=== PATIENT | male | born 1990 | race Caucasian/White ===

== ENCOUNTER 2024-01-20 12:19 | Outpatient (CLI) | payer BC ==
[2024-01-20 13:50] LABS: #Basophils 0.05 10x3/uL (0.0-0.2); %Basophils 0.4 % (0.0-1.0); %Eosinophils 0.7 % (0.0-10.0); %Lymphocytes 24.2 % (21.0-51.0); %Monocytes 6.5 % (0.0-10.0); %Neutrophils 67.8 % (42.0-75.0); Hematocrit 47.2 % (42.0-52.0); Hemoglobin 15.1 g/dL (14.0-18.0); Mean Corpuscular Hemoglobin 28.2 pg (27.0-31.0); Mean Corpuscular Volume 88.1 fL (78.0-98.0); Mean Platelet Volume 9.9 fL (7.4-10.4); Platelet Count 287 10x3/uL (130-400); RBC Distribution Width 14.2 % (11.5-14.5); Red Blood Cell (RBC) Count 5.36 mill/uL (4.70-6.10)
[2024-01-20 13:59] LABS: Anion Gap 12 mmol/L (10-20); BUN (Urea Nitrogen) 10 mg/dL (8.9-20.6); Calc. Creatinine Clearance 0 mL/min (70-130); Calcium 9.8 mg/dL (7.8-10.44); Carbon Dioxide 30 mmol/L (22-29); Chloride 100 mmol/L (98-107); Estimated GFR 98; Glucose 92 mg/dL (70-105); Potassium 3.8 mmol/L (3.5-5.1); Sodium 138 mmol/L (136-145)
== END 2024-01-20 12:20 | disposition home or self-care (01) ==
LOC: LABBT 12:19
PROVIDERS: ATTEND Orthopaedic Surgery
DX: Z01.818 Encounter for other preprocedural examination (principal)
CPT/HCPCS: 80048; 85025; 93005; 93010

== ENCOUNTER 2024-01-27 11:00 | Day surgery (SDC) | payer BC ==
[2024-01-20 12:55] VITALS: BMI 37.9
[2024-01-27] MEDS ORDERED: Meperidine HCl/PF 25 MG (1 mL) VIAL ONE (12:50)
[2024-01-27] MEDS ORDERED: Famotidine/PF 20 mg/2ml Vial ONE ×2 (12:50→13:10)
[2024-01-27] MEDS ORDERED: Sodium Chloride 0.9% 100 ML ONE ×2 (12:59→13:18)
[2024-01-27] MEDS ORDERED: Tranexamic Acid 1,000 MG/10 ML VIAL ONE (12:59)
[2024-01-27] MEDS ORDERED: Vancomycin (BATCH) 1.5 GM/300 ML BAG ONE (13:00)
[2024-01-27] MEDS ORDERED: Ropivacaine 0.5% HCl/PF (150 MG/30 ML VIAL) ONE (13:06)
[2024-01-27] MEDS ORDERED: Midazolam HCl 2 mg/2 ml Vial ONE (13:12)
[2024-01-27] MEDS ORDERED: fentaNYL 50 mcg/mL 1 mL Vial ONE (13:12)
[2024-01-27] MEDS ORDERED: Albuterol 2.5 MG (0.5 mL) NEB ONE (13:12)
[2024-01-27] MEDS ORDERED: CEFAZOLIN 2 GM VIAL ONE (13:17)
[2024-01-27] MEDS ORDERED: PROPOFOL 20 ML ONE (13:57)
[2024-01-27] MEDS ORDERED: Rocuronium Bromide 10 MG/ML (10ML VIAL) ONE (13:58)
[2024-01-27] MEDS ORDERED: Lidocaine 2% PF 5 ML VIAL ONE (13:58)
[2024-01-27] MEDS ORDERED: Dexamethasone 20 MG/5 ML VIAL ONE (14:28)
[2024-01-27] MEDS ORDERED: Bupivacaine PF 0.5% 30 ML VIAL ONE (14:45)
[2024-01-27] MEDS ORDERED: EPINEPHrine 1 MG/ML VIAL ONE (14:45)
[2024-01-27] MEDS ORDERED: Dexmedetomidine 200 MCG/2 ML VIAL ONE (15:17)
[2024-01-27] MEDS ORDERED: SUGAMMADEX SODIUM 200 MG/2 ML VIAL ONE (15:24)
[2024-01-27] MEDS ORDERED: Ropivacaine 0.2% HCl/PF 20 ML ONE (16:03)
[2024-01-27] MEDS ORDERED: Zolpidem Tartrate 5 MG TAB PO PRN (16:15)
[2024-01-27] MEDS ORDERED: Promethazine HCl 25 MG/ML VIAL IM PRN (16:15)
[2024-01-27] MEDS ORDERED: Ondansetron PF 4 MG/2 ML Vial IVP PRN (16:15)
[2024-01-27] MEDS ORDERED: Ropivacaine 0.2% 550 ML 550 ML NERVE BLCK SCH (16:15)
== END 2024-01-27 18:30 | disposition home or self-care (01) ==
LOC: SDC 11:00
PROVIDERS: ATTEND Orthopaedic Surgery
PROC: 3E0T3BZ Introduction of Anesthetic Agent into Peripheral Nerves and Plexi, Percutaneous Approach (ICD-10-PCS; principal; 2024-01-27)
DX: S43.431D Superior glenoid labrum lesion of right shoulder, subsequent encounter (principal); M25.311 Other instability, right shoulder; J45.909 Unspecified asthma, uncomplicated; F17.200 Nicotine dependence, unspecified, uncomplicated; Z79.899 Other long term (current) drug therapy
CPT/HCPCS: A4306; C1713; J0171; J0665; J1100; J2001; J2175; J2250; J2704; J2795; J3010; J3370; J3490; J7611